=== PATIENT | female | born 1970 | race American Indian/Alaskan Native ===

== ENCOUNTER 2018-07-29 08:04 | Emergency (ER) | payer OTHER ==
[2018-07-29 08:20] VITALS: BP 154/85
[2018-07-29 08:47] LABS: Bacteria,Urine 2+ /HPF (Negative); Bilirubin,Urine NEG (Negative); Blood,Urine MOD (Negative); Color,Urine Amber (Yellow); Mucus,Urine 2+ /HPF
[2018-07-29 08:48] LABS: RBC,Urine > 182.0 /HPF (0.0-6.0); WBC,Urine > 182.0 /HPF (0.0-6.0)
[2018-07-29 09:34] LABS: Mean Corpuscular HGB Conc 28 % (30-34); Platelet Count 345 K/mm3 (140-440); Red Blood Count 4.35 M/mm3 (3.65-5.03)
[2018-07-29 09:40] LABS: Hemoglobin 6.8 gm/dl (10.1-14.3); Mean Corpuscular Volume 55 fl (79-97); Red Cell Distribution Width 21.8 % (13.2-15.2)
[2018-07-29] MEDS ORDERED: NACL 0.9% 1000 ML 1,000 ML IV ONE (09:46)
[2018-07-29 09:47] LABS: BUN/Creatinine Ratio 16; Blood Urea Nitrogen 11 mg/dL (7-17); Hemolysis Index 3
--- NOTE | 2018-07-29 09:54 | Emergency Department Report ---
ED Dysuria HPI - HPI Chief Complaint: Urogenital-Female Stated Complaint: UTI Time Seen by Provider: 07/29/18 09:38 Duration: 5 Days Location of Discomfort: Suprapubic Severity: Mild Symptoms: Dysuria: Yes, Frequency: Yes, Suprapubic Pain: Yes, Flank Pain: No, Fever: No, Hematuria: No, Abdominal Pain: No, Previous UTI's: Yes Other History: Miss Calles is a 48-year-old -[place] female who comes in today with urinary frequency and urgency. She denies vaginal discharge. She denies any concern for STI. Patient reports a history of anemia. Patient has been taking Azo at home with no relief. She has no fever. She is ambulatory and nontoxic ED Review of Systems ROS: Stated complaint: UTI Other details as noted in HPI Comment: All other systems reviewed and negative Constitutional: denies: chills, fever Eyes: denies: eye pain ENT: denies: throat pain Respiratory: denies: orthopnea Cardiovascular: denies: orthopnea Endocrine: denies: flushing Gastrointestinal: as per HPI, abdominal pain (upper pubic). denies: nausea, vomiting Genitourinary: urgency, dysuria, frequency, abnormal menses (perimenopausal). denies: hematuria, discharge, dyspareunia Musculoskeletal: denies: back pain Skin: denies: rash Neurological: weakness. denies: headache Psychiatric: denies: anxiety (chronic), depression Hematological/Lymphatic: denies: easy bleeding ED Past Medical Hx - Past Medical History Previous Medical History?: Yes Additional medical history: anemia - Surgical History Past Surgical History?: Yes Additional Surgical History: tubal ligation - Social History Smoking Status: Never Smoker Substance Use Type: None - Medications Home Medications: Home Medications Medication Instructions Recorded Confirmed Last Taken Type Docusate Sodium [Colace] 100 mg PO BID #60 capsule 07/29/18 Unknown Rx Ferrous Sulfate [Iron] 325 mg PO DAILY #30 tablet 07/29/18 Unknown Rx Fluconazole [Diflucan] 150 mg PO ONCE #1 tablet 07/29/18 Unknown Rx Sulfamethoxazole/Trimethoprim 1 each PO BID #6 tablet 07/29/18 Unknown Rx [Bactrim Ds Tablet] Dysuria Exam - Exam General: Vital signs noted. No distress. Alert and acting appropriately. no orthostasis no cp or sob has had anemia for years was getting iron at one time. she has no active bleeding periods are irregular but not heavy Exam: Yes Moist Mucous Membranes, No CVA Tenderness, No Abdominal Tenderness, No Rigidity or Guarding Labs: Lab Results 07/29/18 07/29/18 07/29/18 Range/Units 09:23 09:23 Unknown WBC 4.6 (4.5-11.0) K/mm3 RBC 4.35 (3.65-5.03) M/mm3 Hgb 6.8 L (10.1-14.3) gm/dl Hct 24.0 L (30.3-42.9) % MCV 55 L (79-97) fl MCH 16 L (28-32) pg MCHC 28 L (30-34) % RDW 21.8 H (13.2-15.2) % Plt Count 345 (140-440) K/mm3 Sodium 138 (137-145) mmol/L Potassium 4.0 (3.6-5.0) mmol/L Chloride 102.4 (98-107) mmol/L Carbon Dioxide 23 (22-30) mmol/L Anion Gap 17 mmol/L BUN 11 (7-17) mg/dL Creatinine 0.7 (0.7-1.2) mg/dL Estimated GFR > 60 ml/min BUN/Creatinine Ratio 16 % Glucose 87 (65-100) mg/dL Calcium 9.0 (8.4-10.2) mg/dL Urine Color Jing (Yellow) Urine Turbidity Cloudy (Clear) Urine pH 5.0 (5.0-7.0) Ur Specific [place] 1.014 (1.003-1.030) Urine Protein 100 mg/dl (Negative) mg/dL Urine Glucose (UA) Neg (Negative) mg/dL Urine Ketones Neg (Negative) mg/dL Urine Blood Mod (Negative) Urine Nitrite Pos (Negative) Urine Bilirubin Neg (Negative) Urine Urobilinogen 4.0 (<2.0) mg/dL Ur Leukocyte Esterase Sm (Negative) Urine WBC (Auto) > 182.0 H (0.0-6.0) /HPF Urine RBC (Auto) > 182.0 (0.0-6.0) /HPF Urine Bacteria (Auto) 2+ (Negative) /HPF Urine WBC Clumps 3+ /HPF Urine Mucus 2+ /HPF ED Course Vital Signs 07/29/18 08:18 Temperature 98.2 F Pulse Rate 86 Respiratory 14 Rate Blood Pressure 154/85 O2 Sat by Pulse 97 Oximetry ED Medical Decision Making - Lab Data Result diagrams: 07/29/18 09:23 07/29/18 09:23 - Medical Decision Making urine noted fluids/anbx CBC noted discussed at length with patient PCP referral provided started pt on iron and colace Labs 07/29/18 07/29/18 07/29/18 09:23 09:23 Unknown WBC 4.6 RBC 4.35 Hgb 6.8 L Hct 24.0 L MCV 55 L MCH 16 L MCHC 28 L RDW 21.8 H Plt Count 345 Sodium 138 Potassium 4.0 Chloride 102.4 Carbon Dioxide 23 Anion Gap 17 BUN 11 Creatinine 0.7 Estimated GFR > 60 BUN/Creatinine Ratio 16 Glucose 87 Calcium 9.0 Urine Color Jing Urine Turbidity Cloudy Urine pH 5.0 Ur Specific [place] 1.014 Urine Protein 100 mg/dl Urine Glucose (UA) Neg Urine Ketones Neg Urine Blood Mod Urine Nitrite Pos Urine Bilirubin Neg Urine Urobilinogen 4.0 Ur Leukocyte Esterase Sm Urine WBC (Auto) > 182.0 H Urine RBC (Auto) > 182.0 Urine Bacteria (Auto) 2+ Urine WBC Clumps 3+ Urine Mucus 2+ - Differential Diagnosis uti v pylo v sti Critical care attestation.: If time is entered above; I have spent that time in minutes in the direct care of this critically ill patient, excluding procedure time. ED Disposition Clinical Impression: UTI (urinary tract infection), Chronic anemia Disposition: - TO HOME OR SELFCARE Is pt being admited?: No Does the pt Need Aspirin: No Condition: Stable Instructions: Urinary Tract Infection in Women (ED), Anemia (ED) Additional Instructions: STAY HYDRATED WITH A LOT OF WATER MEDS ORDERED TODAY FOLLOW UP WITH PCP SINAN SEE REFERRAL BELOW Prescriptions: Docusate Sodium [Colace] 100 mg PO BID #60 capsule Ferrous Sulfate [Iron] 325 mg PO DAILY #30 tablet Fluconazole [Diflucan] 150 mg PO ONCE #1 tablet Sulfamethoxazole/Trimethoprim [Bactrim Ds Tablet] 1 each PO BID #6 tablet Referrals: PRIMARY CARE, [Primary Care Provider] - 3-5 Days KATHY JOY MD [Staff Physician] - 3-5 Days [facility] [Outside] - 3-5 Days Time of Disposition: 09:51
[2018-07-29] MEDS ORDERED: ROCEPHIN/NS 1 GM/50 ML 1 GM/50 ML BAG IV ONE (10:30)
[2018-07-29] MEDS ORDERED: FEOSOL PO ONE (10:30)
== END 2018-07-29 12:25 | disposition home or self-care (01) ==
LOC: ED 08:04
DX: N39.0 Urinary tract infection, site not specified (principal); G89.29 Other chronic pain; Z86.2 Personal history of diseases of the blood and blood-forming organs and certain disorders involving the immune mechanism; Z98.51 Tubal ligation status
CPT/HCPCS: 36415; 80048; 81001; 85027; 96365; 99283; J0696; J7030